=== PATIENT | male | born 1965 | race Hispanic/Latino ===

== ENCOUNTER 2022-03-13 12:17 | Emergency (ER) | payer OTHER ==
[~2022-03-13] VITALS: Ht 175.3 cm; Wt 90.7 kg
[2022-03-13 12:55] LABS: BASOPHILS % (AUTO) 0.4 % (0.0-5.0); EOSINOPHILS % (AUTO) 1.2 % (0.0-8.0); HEMATOCRIT 40.1 % (42-54); LYMPHOCYTES % (AUTO) 23.3 % (21.0-51.0); MEAN CORPUSCULAR HEMOGLOBIN 30.1 pg (27.0-33.0); MEAN CORPUSCULAR HGB CONC 34.2 g/dL (32.0-36.0); MEAN CORPUSCULAR VOLUME 88.1 fL (79-99); MONOCYTES % (AUTO) 4.6 % (3.0-13.0); NEUTROPHILS % (AUTO) 70.1 % (40.0-77.0); PLATELET COUNT (AUTO) 173 K/uL (130-400); RED BLOOD CELL COUNT(AUTO) 4.55 MIL/uL (4.50-6.20); RED CELL DISTRIBUTION WIDTH 12.7 % (11.0-15.5); WHITE BLOOD COUNT (AUTO) 7.4 K/uL (4.8-10.8)
[2022-03-13 12:59] LABS: APPEARANCE,URINE CLEAR (CLEAR); BILIRUBIN,URINE NEGATIVE (NEGATIVE); COLOR,URINE YELLOW (YELLOW); GLUCOSE, URINE (UA) 500 mg/dL (NEGATIVE); KETONES,URINE NEGATIVE (NEGATIVE); LEUKOCYTE ESTERASE ,URINE NEGATIVE (NEGATIVE); NITRATE,URINE NEGATIVE (NEGATIVE); OCCULT BLOOD,URINE NEGATIVE (NEGATIVE); PH,URINE 6.5 (5.0-8.0); PROTEIN,URINE NEGATIVE (NEGATIVE); UROBILINOGEN,URINE 0.2 mg/dL (0.2-1.0)
[2022-03-13] MEDS ORDERED: MECLIZINE HCL 25 MG TABLET PO ONE (13:00)
[2022-03-13] MEDS ORDERED: 0.9%NACL 1000ML 1,000 ML IV SCH (13:00)
[2022-03-13 13:07] LABS: AMPHET/METH SCREEN,URINE NEGATIVE (NEGATIVE); BACTERIA,URINE None Seen /HPF (None Seen); BARBITURATE SCREEN, URINE NEGATIVE (NEGATIVE); BENZODIAZEPINES SCREEN,URINE NEGATIVE (NEGATIVE); CANNABINOID SCREEN,URINE NEGATIVE (NEGATIVE); CARBON DIOXIDE 27 mmol/L (21-32); CHLORIDE 103 mmol/L (101-111); COCAINE SCREEN,URINE NEGATIVE (NEGATIVE); CREATININE 1.2 mg/dL (0.5-1.5); GLOMERULAR FILTR. RATE CALC 67 mL/min (>60); GLUCOSE,RANDOM 251 mg/dL (70-105); MUCUS,URINE Few LPF (None Seen); OPIATE SCREEN,URINE NEGATIVE (NEGATIVE); PHENCYCLIDINE SCREEN,URINE NEGATIVE (NEGATIVE); POTASSIUM 3.4 mmol/L (3.5-5.1); RBC,URINE None Seen /HPF (0-1); SODIUM SERUM 140 mmol/L (136-145); SQUAMOUS EPITHELIAL CELL,UR 0-2 /HPF (0-2); UREA NITROGEN, BLOOD 10 mg/dL (7-18); WBC,URINE None Seen /HPF (0-1)
[2022-03-13 13:11] LABS: ALANINE AMINOTRANSFERASE 28 U/L (12-78); ALBUMIN 3.7 g/dL (3.5-5.0); ASPARTATE AMINOTRANSFERASE 14 U/L (10-37); BILIRUBIN,TOTAL 0.6 mg/dL (0.2-1.0); CREATINE KINASE, TOTAL 80 U/L (21-232); TOTAL PROTEIN, SERUM 7.1 g/dL (6.0-8.3)
[2022-03-13 13:26] LABS: CRP QUANTITATIVE < 2.00 mg/L (0.00-9.0)
[2022-03-13] MEDS ORDERED: POTASSIUM BICARB/CIT AC 25 MEQ TABLET.EFF PO ONE (13:30)
[2022-03-13 14:10] VITALS: BP 131/77
[2022-03-13] MEDS ORDERED: MECL-226 PO (14:45)
== END 2022-03-13 15:00 | disposition home or self-care (01) ==
LOC: EDH 12:17
DX: R42 Dizziness and giddiness (principal); E86.0 Dehydration; R73.9 Hyperglycemia, unspecified; I10 Essential (primary) hypertension; Z90.89 Acquired absence of other organs
CPT/HCPCS: 36415; 70450; 80053; 80305; 81001; 82550; 84484; 85025; 86140; 96360; 99284; J7030